=== PATIENT | female | born 1945 | race Caucasian/White ===

== ENCOUNTER 2017-01-28 13:09 | Emergency (ER) | payer MEDICARE, BC ==
[2017-01-28 14:03] LABS: APPEARANCE CLOUDY (CLEAR); BILIRUBIN NEGATIVE (NEGATIVE); COLOR YELLOW (YELLOW); GLUCOSE NEGATIVE (NEGATIVE); KETONE SMALL mg/dL (NEGATIVE); NITRITE POSITIVE (NEGATIVE); PROTEIN TRACE mg/dL (NEGATIVE); SPECIFIC GRAVITY 1.015 (1.005-1.020); UROBILINOGEN NORMAL (NORMAL)
[2017-01-28 14:04] LABS: BACTERIA MANY /hpf (NONE SEEN); EPITHELIAL CELLS 0-5 /hpf (0-5); RED CELLS - URINE 0-5 /hpf (0-5)
[2017-01-28 14:06] LABS: BASOPHILS 0.4 % (0-2); EOSINOPHILS 4.5 % (0-7); HEMATOCRIT 41.2 % (36.0-48.0); HEMOGLOBIN 13.3 g/dL (12-16); IMMATURE GRANULOCYTES 0.2 % (0-5); LYMPHOCYTES 20.1 % (15-50); MCH 30.3 pg (26.0-34.0); MCHC 32.3 g/dL (31.0-37.0); MCV 93.8 fL (80.0-100.0); MEAN PLATELET VOLUME 10.7 fL (7.4-10.4); MONOCYTES 10.3 % (2-11); NEUTROPHILS 64.5 % (40-80); PLATELET COUNT 252 10x3/uL (130-400); RBC 4.39 10x6/uL (4.00-5.40); RDW 13.8 % (11.5-14.5); WBC 4.7 10x3/uL (4.8-10.8)
[2017-01-28 14:16] LABS: INR 0.99 (0.85-1.17)
[2017-01-28 14:22] LABS: ALBUMIN 3.4 g/dL (3.4-5.0); ALKALINE PHOSPHATASE 134 U/L (46-116); ALT (SGPT) 24 U/L (10-68); BILIRUBIN - TOTAL 0.38 mg/dL (0.2-1.3); CALC OSMOLALITY 275 mosm/kg (275-300); CARBON DIOXIDE 26.7 mmol/L (21.0-32.0); CHLORIDE - SERUM 103 mmol/L (98-107); CREATININE - SERUM 1.1 mg/dL (0.6-1.3); GLUCOSE 88 mg/dL (74-106); POTASSIUM - SERUM 4.3 mmol/L (3.5-5.1); PROTEIN - SERUM 7.3 g/dL (6.4-8.2); SODIUM 138 mmol/L (136-145); UREA NITROGEN 14 mg/dL (7-18); eGFR NON AFRICAN AMERICAN 52 mL/min (90-120)
[2017-01-28 14:42] LABS: CREATINE KINASE 401 UL (21-215); MAGNESIUM - SERUM 1.9 mg/dL (1.8-2.4); PRO BNP 292 pg/mL (0-125)
[2017-01-28 14:44] LABS: CKMB 1.8 U/L (0.0-3.6); TROPONIN-I < 0.017 ng/mL (0.000-0.060)
== END 2017-01-28 15:45 | disposition home or self-care (01) ==
LOC: D.ER 13:09
PROVIDERS: Family Medicine; Nurse Practitioner Family
DX: R55 Syncope and collapse (principal); N39.0 Urinary tract infection, site not specified; G91.9 Hydrocephalus, unspecified; I10 Essential (primary) hypertension